=== PATIENT | female | born 1960 | race African-American/Black ===

== ENCOUNTER → 2018-05-06 | Outpatient (CLI) | payer MEDICARE, MEDICAID ==
[~2018-05-06] MED LIST: BACL-141 PO; CARI350T27 PO; CIPR-263 PO; D-ME473S8 PO; FERROUS SULFATE PO; FURO40TA5 PO; HYDR-3162 PO; IBUP-1008 PO; METO10TA3 PO; PARO30TA62 PO; PERICOLACE PO; POTASSIUM PO; TRAZ-129 PO; [UNRECOGNIZED DRUG - CODE] PO
== END | disposition home or self-care (01) ==
LOC: CT 14:45
PROVIDERS: ATTEND Internal Medicine Pulmonary Disease
DX: R41.82 Altered mental status, unspecified (principal)
CPT/HCPCS: 70450

== ENCOUNTER 2019-12-14 09:43 | Inpatient (IN) | payer MEDICARE, MEDICAID ==
[2019-12-13 20:00] VITALS: BP 105/80
[~2019-12-14] VITALS: Ht 167.6 cm; Wt 126.0 kg
[~2019-12-14 09:43] MED LIST changes: -TRAZ-129 PO; +TRAZ-251 PO
[2019-12-14] MEDS ORDERED: ASPIRIN 81MG TABLET PO ONE (11:15)
[2019-12-14] MEDS ORDERED: NITROGLYCERIN 0.4MG TABLET SL SL PRN (11:15)
[2019-12-14 12:17] LABS: PARTIAL THROMBOPLASTIN TIME 27.5 sec (23.4-31.0); PROTHROMBIN TIME 10.5 sec (9.6-11.0)
[2019-12-14 12:34] LABS: BASOPHILS % 0.8 % (0.0-2.0); EOSINOPHILS % 2.1 % (0.0-5.0); HEMATOCRIT. 38.9 % (36.0-48.0); HEMOGLOBIN. 12.6 g/dL (12.0-16.0); LYMPHOCYTES % 42.2 % (20.0-50.0); MEAN CORPUSCULAR HEMOGLOBIN 29.9 pg (28.0-32.0); MEAN CORPUSCULAR VOLUME 92.1 fL (81.0-99.0); MEAN PLATELET VOLUME 9.6 fl (7.4-10.4); MONOCYTES % 9.8 % (2.0-8.0); NEUTROPHILS % 45.1 % (40.0-76.0); PLATELET 208 x1000/uL (130-400); RED BLOOD CELL COUNT 4.22 mill/uL (4.2-5.4); RED CELL DISTRIBUTION WIDTH 16.9 % (11.6-14.6)
[2019-12-14 12:36] LABS: CHLORIDE 114 mEq/L (98-107)
[2019-12-14] MEDS ORDERED: ONDANSETRON HCL 4MG/2ML INJ IV PRN (14:30)
[2019-12-14 17:35] LABS: *AMPHETAMINES SCREEN URINE NEGATIVE (NEGATIVE)
[2019-12-14 17:36] LABS: *BARBITURATES SCREEN URINE NEGATIVE (NEGATIVE); *BENZODIAZEPINES SCREEN URINE NEGATIVE (NEGATIVE); *COCAINE SCREEN URINE NEGATIVE (NEGATIVE); METHADONE URINE SCREEN NEGATIVE (NEGATIVE); OPIATES URINE SCREEN NEGATIVE (NEGATIVE); PHENCYCLIDINE URINE SCREEN NEGATIVE (NEGATIVE)
[2019-12-14 17:37] LABS: CANNABINOID URINE SCREEN NEGATIVE (NEGATIVE)
[2019-12-14 19:13] LABS: HEPATITIS B SURFACE ANTIGEN NEGATIVE
[2019-12-14 19:42] LABS: HEPATITIS A AB IGM NEGATIVE (NEGATIVE)
[2019-12-14] MEDS ORDERED: METOPROLOL TARTRATE 25MG TABLET PO NR (19:56)
[2019-12-14] MEDS: ENOXAPARIN 120MG/0.8ML SYR SUBCUT SCH (20:28)
[2019-12-14] MEDS: ATORVASTATIN CALCIUM 10MG TABLET PO SCH (20:28)
[2019-12-14] MEDS ORDERED: HEPARIN 5000 UNITS/ML VIAL SUBCUT SCH (21:00)
[2019-12-14 22:00] VITALS: BP 105/80
[2019-12-14] MEDS ORDERED: METOPROLOL TARTRATE 25MG TABLET PO SCH (22:00)
[2019-12-14] MEDS: ACETAMINOPHEN 325MG TABLET PO PRN (23:05)
[2019-12-14] MEDS ORDERED: metropolol PO (23:12)
[2019-12-14] MEDS ORDERED: amlodipine PO (23:30)
[2019-12-14] MEDS ORDERED: symbicort INH (23:53)
[2019-12-14] MEDS ORDERED: [UNRECOGNIZED DRUG - OTHER] PO (23:53)
[2019-12-15] VITALS: BP 109/74
[2019-12-15 04:00] VITALS: BP 129/79
[2019-12-15] MEDS: METOPROLOL TARTRATE 25MG TABLET PO SCH ×3 (06:00→21:15)
[2019-12-15] MEDS: ACETAMINOPHEN 325MG TABLET PO PRN ×3 (06:44→21:24)
[2019-12-15 07:27] LABS: BASOPHILS % 0.8 % (0.0-2.0); HEMATOCRIT. 39.7 % (36.0-48.0); LYMPHOCYTES % 39.2 % (20.0-50.0); MEAN CORPUSCULAR VOLUME 91.7 fL (81.0-99.0); MEAN PLATELET VOLUME 9.5 fl (7.4-10.4); MONOCYTES % 10.4 % (2.0-8.0); NEUTROPHILS % 46.6 % (40.0-76.0); PLATELET 207 x1000/uL (130-400); RED BLOOD CELL COUNT 4.33 mill/uL (4.2-5.4); RED CELL DISTRIBUTION WIDTH 16.9 % (11.6-14.6)
[2019-12-15 07:57] LABS: CHLORIDE 112 mEq/L (98-107)
[2019-12-15 08:00] VITALS: BP 103/76
[2019-12-15 08:08] LABS: LDL CHOLESTEROL 64 mg/dL (5-100)
[2019-12-15 08:09] LABS: HDL CHOLESTEROL 48 mg/dL (40-59)
[2019-12-15] MEDS: ENOXAPARIN 120MG/0.8ML SYR SUBCUT SCH ×2 (08:49→21:15)
[2019-12-15] MEDS: METOPROLOL TARTRATE 5MG/5ML VIAL IV PRN ×2 (09:19→12:42)
[2019-12-15 12:00] VITALS: BP 114/72
[2019-12-15 16:00] VITALS: BP 120/72
[2019-12-15 20:00] VITALS: BP 110/80
[2019-12-15] MEDS: ATORVASTATIN CALCIUM 10MG TABLET PO SCH (21:14)
[2019-12-16] VITALS: BP 117/78
[2019-12-16 04:00] VITALS: BP 106/73
[2019-12-16] MEDS: METOPROLOL TARTRATE 25MG TABLET PO SCH ×3 (06:15→21:24)
[2019-12-16] MEDS: ACETAMINOPHEN 325MG TABLET PO PRN ×3 (06:47→21:24)
[2019-12-16 08:00] VITALS: BP 107/54
[2019-12-16] MEDS: ENOXAPARIN 120MG/0.8ML SYR SUBCUT SCH ×2 (09:07→21:25)
[2019-12-16] MEDS ORDERED: DIGOXIN 125MCG TABLET PO NR (10:00)
[2019-12-16 12:00] VITALS: BP 110/90
[2019-12-16] MEDS ORDERED: POTASSIUM CHLORIDE 20MEQ/PACKET PO NR (12:30)
[2019-12-16 16:00] VITALS: BP 92/61
[2019-12-16 16:01] LABS: HEMATOCRIT 38.1 % (36.0-48.0); HEMOGLOBIN 12.5 g/dL (12.0-16.0); MEAN CORPUSCULAR HEMOGLOBIN 30.1 pg (28.0-32.0); MEAN CORPUSCULAR VOLUME 91.8 fL (81.0-99.0); PLATELET 205 x1000/uL (130-400); RED BLOOD CELL COUNT 4.15 mill/uL (4.2-5.4); RED CELL DISTRIBUTION WIDTH 16.6 % (11.6-14.6)
[2019-12-16 16:26] LABS: CHLORIDE 109 mEq/L (98-107)
[2019-12-16 18:08] LABS: VITAMIN B12 SERUM 554 pg/mL (211-911)
[2019-12-16 20:00] VITALS: BP 110/75
[2019-12-16] MEDS: ATORVASTATIN CALCIUM 10MG TABLET PO SCH (21:24)
[2019-12-17] VITALS: BP 110/71
[2019-12-17 04:00] VITALS: BP 127/62
[2019-12-17] MEDS: METOPROLOL TARTRATE 25MG TABLET PO SCH ×3 (06:29→22:05)
[2019-12-17] MEDS: ACETAMINOPHEN 325MG TABLET PO PRN ×3 (06:29→21:18)
[2019-12-17 08:00] VITALS: BP 105/66
[2019-12-17] MEDS: ENOXAPARIN 120MG/0.8ML SYR SUBCUT SCH (09:14)
[2019-12-17 10:39] LABS: BASOPHILS % 0.8 % (0.0-2.0); EOSINOPHILS % 2.6 % (0.0-5.0); HEMATOCRIT. 38.2 % (36.0-48.0); HEMOGLOBIN. 12.6 g/dL (12.0-16.0); LYMPHOCYTES % 43.9 % (20.0-50.0); MEAN CORPUSCULAR HEMOGLOBIN 30.3 pg (28.0-32.0); MEAN CORPUSCULAR VOLUME 91.6 fL (81.0-99.0); MEAN PLATELET VOLUME 9.9 fl (7.4-10.4); MONOCYTES % 10.5 % (2.0-8.0); NEUTROPHILS % 42.2 % (40.0-76.0); PLATELET 201 x1000/uL (130-400); RED BLOOD CELL COUNT 4.17 mill/uL (4.2-5.4); RED CELL DISTRIBUTION WIDTH 16.7 % (11.6-14.6)
[2019-12-17 12:00] VITALS: BP 96/73
[2019-12-17] MEDS ORDERED: APIX5TAB MT (12:17)
[2019-12-17] MEDS ORDERED: METO25TA6 PO (12:17)
[2019-12-17 16:00] VITALS: BP 107/75
[2019-12-17 20:00] VITALS: BP 104/65
[2019-12-17] MEDS: ATORVASTATIN CALCIUM 10MG TABLET PO SCH (21:17)
[2019-12-17] MEDS: APIXABAN 5 MG TABLET PO SCH (21:18)
[2019-12-18] VITALS: BP 120/76
[2019-12-18 04:00] VITALS: BP 108/75
[2019-12-18] MEDS: ACETAMINOPHEN 325MG TABLET PO PRN ×2 (05:52→13:56)
[2019-12-18] MEDS: METOPROLOL TARTRATE 25MG TABLET PO SCH ×2 (05:52→13:56)
[2019-12-18 07:01] LABS: BASOPHILS % 0.4 % (0.0-2.0); EOSINOPHILS % 3.7 % (0.0-5.0); HEMATOCRIT. 37.7 % (36.0-48.0); HEMOGLOBIN. 12.5 g/dL (12.0-16.0); MEAN CORPUSCULAR HEMOGLOBIN 30.3 pg (28.0-32.0); MEAN CORPUSCULAR VOLUME 91.6 fL (81.0-99.0); MEAN PLATELET VOLUME 9.7 fl (7.4-10.4); MONOCYTES % 14.4 % (2.0-8.0); NEUTROPHILS % 35.5 % (40.0-76.0); PLATELET 186 x1000/uL (130-400); RED BLOOD CELL COUNT 4.12 mill/uL (4.2-5.4); RED CELL DISTRIBUTION WIDTH 17.1 % (11.6-14.6)
[2019-12-18 07:08] LABS: CHLORIDE 111 mEq/L (98-107)
[2019-12-18 08:00] VITALS: BP 102/70
[2019-12-18] MEDS: APIXABAN 5 MG TABLET PO SCH (08:24)
[2019-12-18 12:00] VITALS: BP 116/87
[2019-12-18] MEDS ORDERED: METO25TA6 PO (13:48)
== END 2019-12-18 14:00 | disposition home or self-care (01) | DRG 292 ==
LOC: ER 09:43 → 5WST 15:05 → EDBEDREQ 15:10 → ENRESERV 20:20
PROVIDERS: ADMIT Internal Medicine; ATTEND Internal Medicine
DX: I11.0 Hypertensive heart disease with heart failure (principal); Z68.41 Body mass index [BMI] 40.0-44.9, adult; I47.2 Ventricular tachycardia; I48.91 Unspecified atrial fibrillation; I50.9 Heart failure, unspecified; E66.01 Morbid (severe) obesity due to excess calories; E78.5 Hyperlipidemia, unspecified; I27.29 Other secondary pulmonary hypertension; I27.81 Cor pulmonale (chronic); J44.9 Chronic obstructive pulmonary disease, unspecified; Z79.01 Long term (current) use of anticoagulants; Z79.82 Long term (current) use of aspirin; Z87.891 Personal history of nicotine dependence; Z79.899 Other long term (current) drug therapy
CPT/HCPCS: 36415; 71045; 71275; 80048; 80053; 80061; 80305; 82607; 83036; 83735; 83880; 84443; 84484; 85025; 85027; 85379; 86705; 86709; 86803; 87340; 93005; 93306; 93970; 99285; J1650; J3490; Q9967

== ENCOUNTER 2024-12-17 12:33 | Inpatient (IN) | payer MEDICARE, MEDICAID ==
[~2024-12-17] VITALS: Ht 165.1 cm; Wt 141.5 kg
[~2024-12-17 12:33] MED LIST changes: +APIX5TAB MT; -BACL-141 PO; -CIPR-263 PO; -FERROUS SULFATE PO; -HYDR-3162 PO; -IBUP-1008 PO; +LEVO750T68 MT; +METF-416 MT; +METH4TAB95 MT; +METO25TA6 PO; -POTASSIUM PO; +PROT20 MT; +[UNRECOGNIZED DRUG - CODE] HHN; -[UNRECOGNIZED DRUG - CODE] PO; +[UNRECOGNIZED DRUG - OTHER] PO; +amlodipine PO; +symbicort INH
[2024-12-17 14:19] LABS: BASOPHILS % 0.9 % (0.0-2.0); DIFFERENTIAL COMMENT 0; EOSINOPHILS % 1.3 % (0.0-5.0); HEMATOCRIT. 39.3 % (36.0-48.0); HEMOGLOBIN. 12.7 g/dL (12.0-16.0); LYMPHOCYTES % 41.2 % (20.0-50.0); MEAN CORPUSCULAR HEMOGLOBIN 32.4 pg (28.0-32.0); MEAN CORPUSCULAR HGB CONC 32.3 g/dL (31.0-37.0); MEAN CORPUSCULAR VOLUME 100.3 fL (81.0-99.0); MEAN PLATELET VOLUME 9.2 fl (7.4-10.4); MONOCYTES % 11.2 % (2.0-8.0); NEUTROPHILS % 45.4 % (40.0-76.0); PLATELET 213 x1000/uL (130-400); RED BLOOD CELL COUNT 3.92 mill/uL (4.2-5.4); RED CELL DISTRIBUTION WIDTH 15.4 % (11.6-14.6); WHITE BLOOD COUNT 6.5 x1000/uL (4.5-11.0)
[2024-12-17 14:25] LABS: CHLORIDE 111 mEq/L (98-107); POTASSIUM 3.9 mEq/L (3.5-5.1); SODIUM 143 mEq/L (136-145)
[2024-12-17 14:26] LABS: CARBON DIOXIDE 26 mEq/L (21-32)
[2024-12-17 14:27] LABS: CALCIUM 9.1 mg/dL (8.7-10.4)
[2024-12-17 14:31] LABS: CREATININE 0.7 mg/dL (0.6-1.0); GLUCOSE 98 mg/dL (70-105); UREA NITROGEN BLOOD 11 mg/dL (9-23)
[2024-12-17 14:48] LABS: TROPONIN I HIGH SENSITIVITY < 4 ng/L (3.0-34)
[2024-12-17] MEDS: FUROSEMIDE 40MG/4ML VIAL IVP ONE (14:52)
[2024-12-17] MEDS ORDERED: DILTIAZEM HCL 5MG/ML 5ML VIAL IV NR (16:15)
[2024-12-17] MEDS: DILTIAZEM HCL 30MG TABLET PO SCH (16:15)
[2024-12-17] MEDS ORDERED: ONDANSETRON HCL 4MG/2ML INJ IV PRN (16:15)
[2024-12-17] MEDS ORDERED: CLONIDINE 0.1MG TABLET PO PRN (16:15)
[2024-12-17] MEDS ORDERED: IPRATROPIUM/ALBUTEROL 0.5-3(2.5)MG/3ML NEB NEB PRN (16:15)
[2024-12-17] MEDS: DILTIAZEM HCL 5MG/ML 5ML VIAL IV NR (17:04)
[2024-12-17] MEDS ORDERED: DILTIAZEM HCL 125 MG in DEXT 5% WATER 100 ML IV ONE (17:15)
[2024-12-17] MEDS ORDERED: AMIODARONE 360MG/200ML 200 ML IV SCH (18:15)
[2024-12-17] MEDS ORDERED: AMIODARONE 150MG/100ML D5W 100 ML IV ONE (18:15)
[2024-12-17] MEDS: ENOXAPARIN 150MG/ML SYR SUBCUT SCH (18:44)
[2024-12-17] MEDS: DILTIAZEM HCL 5MG/ML 5ML VIAL IV ONE (18:45)
[2024-12-17] MEDS: METHYLPREDNISOLONE SOD SUCC 40MG/ML (ACT-O-VIAL) IV SCH (18:46)
[2024-12-17] MEDS: AMIODARONE 150MG/100ML D5W 100 ML IV NR (18:53)
[2024-12-17] MEDS: AMIODARONE 360MG/200ML 200 ML IV SCH (19:13)
[2024-12-17] MEDS ORDERED: ENOXAPARIN 40MG/0.4ML SYR SUBCUT SCH (21:00)
[2024-12-17] MEDS: GUAIFENESIN 600MG ER TABLET PO SCH (21:44)
[2024-12-17 23:29] LABS: CREATINE KINASE MB FRACTION 1.1 ng/mL (0.5-3.6)
[2024-12-17 23:30] LABS: CREATINE KINASE 92 IU/L (34-145)
[2024-12-18] VITALS (43 sets, daily range): BP systolic 97–138; BP diastolic 72–121; PULSE 99–152; RESP 13–31; TEMP 36.6–36.8; O2SAT 93–99
[2024-12-18 00:02] LABS: TROPONIN I HIGH SENSITIVITY < 4 ng/L (3.0-34)
[2024-12-18 06:37] LABS: BASOPHILS % 0.3 % (0.0-2.0); DIFFERENTIAL COMMENT 0; HEMATOCRIT. 38.8 % (36.0-48.0); HEMOGLOBIN. 12.7 g/dL (12.0-16.0); MEAN CORPUSCULAR HEMOGLOBIN 33.1 pg (28.0-32.0); MEAN CORPUSCULAR HGB CONC 32.7 g/dL (31.0-37.0); MEAN CORPUSCULAR VOLUME 101.2 fL (81.0-99.0); MEAN PLATELET VOLUME 9.6 fl (7.4-10.4); MONOCYTES % 2.3 % (2.0-8.0); NEUTROPHILS % 78.4 % (40.0-76.0); PLATELET 219 x1000/uL (130-400); RED BLOOD CELL COUNT 3.83 mill/uL (4.2-5.4); RED CELL DISTRIBUTION WIDTH 14.8 % (11.6-14.6); WHITE BLOOD COUNT 5.3 x1000/uL (4.5-11.0)
[2024-12-18 06:52] LABS: CHLORIDE 107 mEq/L (98-107); POTASSIUM 3.9 mEq/L (3.5-5.1); SODIUM 140 mEq/L (136-145)
[2024-12-18 06:53] LABS: CARBON DIOXIDE 27 mEq/L (21-32)
[2024-12-18 06:58] LABS: CREATININE 0.7 mg/dL (0.6-1.0); GLUCOSE 201 mg/dL (70-105); UREA NITROGEN BLOOD 9 mg/dL (9-23)
[2024-12-18] MEDS ORDERED: DILTIAZEM HCL 5MG/ML 5ML VIAL IV PRN (07:00)
[2024-12-18] MEDS: PANTOPRAZOLE SODIUM 40 MG/VIAL IV SCH (08:39)
[2024-12-18] MEDS: METOPROLOL TARTRATE 25MG TABLET PO SCH (08:39)
[2024-12-18] MEDS: HYDROCODONE/ACETAMINOPHEN 5/325MG TABLET PO PRN (08:40)
[2024-12-18 10:31] LABS: BASOPHILS % 0.2 % (0.0-2.0); DIFFERENTIAL COMMENT 0; HEMATOCRIT. 38.8 % (36.0-48.0); HEMOGLOBIN. 12.7 g/dL (12.0-16.0); LYMPHOCYTES % 16.8 % (20.0-50.0); MEAN CORPUSCULAR HEMOGLOBIN 32.9 pg (28.0-32.0); MEAN CORPUSCULAR HGB CONC 32.8 g/dL (31.0-37.0); MEAN CORPUSCULAR VOLUME 100.2 fL (81.0-99.0); MEAN PLATELET VOLUME 9.6 fl (7.4-10.4); MONOCYTES % 1.1 % (2.0-8.0); NEUTROPHILS % 81.9 % (40.0-76.0); PLATELET 219 x1000/uL (130-400); RED BLOOD CELL COUNT 3.87 mill/uL (4.2-5.4); WHITE BLOOD COUNT 5.6 x1000/uL (4.5-11.0)
[2024-12-18 10:34] LABS: CARBON DIOXIDE 26 mEq/L (21-32); CHLORIDE 104 mEq/L (98-107); POTASSIUM 3.7 mEq/L (3.5-5.1); SODIUM 139 mEq/L (136-145)
[2024-12-18 10:35] LABS: CALCIUM 9.3 mg/dL (8.7-10.4)
[2024-12-18 10:40] LABS: CREATININE 0.7 mg/dL (0.6-1.0); GLUCOSE 223 mg/dL (70-105); UREA NITROGEN BLOOD 8 mg/dL (9-23)
[2024-12-18 10:41] LABS: CREATINE KINASE MB FRACTION 1.1 ng/mL (0.5-3.6)
[2024-12-18 10:43] LABS: CREATINE KINASE 83 IU/L (34-145)
[2024-12-18] MEDS: DILTIAZEM HCL 60MG TABLET PO SCH (11:12)
[2024-12-18 11:20] LABS: TROPONIN I HIGH SENSITIVITY < 4 ng/L (3.0-34)
[2024-12-18] MEDS ORDERED: DEXTROSE 50% WATER 50ML SYRINGE IV PRN (17:00)
[2024-12-18] MEDS: BLOOD SUGAR DIAGNOSTIC STRIP TEST SCH (17:01)
[2024-12-18] MEDS: INSULIN LISPRO 100 UNITS/ML SUBCUT SCH (18:23)
[2024-12-18] MEDS: AMIODARONE 150MG/100ML D5W 100 ML IV NR (22:59)
[2024-12-18] MEDS: ACETAMINOPHEN 325MG TABLET PO PRN (23:04)
[2024-12-19] VITALS (41 sets, daily range): BP systolic 105–163; BP diastolic 60–121; PULSE 86–141; RESP 11–31; TEMP 35.8–36.7; O2SAT 92–99
[2024-12-19 06:19] LABS: BASOPHILS % 0.2 % (0.0-2.0); DIFFERENTIAL COMMENT 0; HEMATOCRIT. 38.5 % (36.0-48.0); HEMOGLOBIN. 12.1 g/dL (12.0-16.0); LYMPHOCYTES % 9.3 % (20.0-50.0); MEAN CORPUSCULAR HEMOGLOBIN 32.3 pg (28.0-32.0); MEAN CORPUSCULAR HGB CONC 31.5 g/dL (31.0-37.0); MEAN CORPUSCULAR VOLUME 102.5 fL (81.0-99.0); MEAN PLATELET VOLUME 9.8 fl (7.4-10.4); NEUTROPHILS % 85.5 % (40.0-76.0); PLATELET 226 x1000/uL (130-400); RED BLOOD CELL COUNT 3.75 mill/uL (4.2-5.4); RED CELL DISTRIBUTION WIDTH 15.1 % (11.6-14.6); WHITE BLOOD COUNT 11.7 x1000/uL (4.5-11.0)
[2024-12-19 06:37] LABS: CARBON DIOXIDE 27 mEq/L (21-32); CHLORIDE 105 mEq/L (98-107); POTASSIUM 4.2 mEq/L (3.5-5.1); SODIUM 139 mEq/L (136-145)
[2024-12-19 06:38] LABS: CALCIUM 9.3 mg/dL (8.7-10.4)
[2024-12-19 06:42] LABS: CREATININE 0.8 mg/dL (0.6-1.0)
[2024-12-19 06:43] LABS: GLUCOSE 169 mg/dL (70-105); UREA NITROGEN BLOOD 12 mg/dL (9-23)
[2024-12-19] MEDS: IPRATROPIUM/ALBUTEROL 0.5-3(2.5)MG/3ML NEB HHN SCH (08:00)
[2024-12-19] MEDS: FUROSEMIDE 40MG/4ML VIAL IVP SCH (08:15)
[2024-12-19] MEDS ORDERED: NALOXONE HCL 0.4MG/ML VIAL IV PRN (13:15)
[2024-12-19 17:27] LABS: BG BASE EXCESS 1.8 mmol/L (-2.0-3.0); BG CARBOXYHEMOGLOBIN 0.7 % (0.5-1.5); BG DEOXYHEMOGLOBIN 3.7 % (0.0-5.0); BG FRACTION INSPIRED OXYGEN 21; BG HCO3 ACT 25.4 mmol/L (21.0-28.0); BG METHEMOGLOBIN 0.1 % (0.5-1.5); BG OXYGEN SATURATION 96.3 % (94.0-98.0); BG OXYHEMOGLOBIN 95.5 % (94.0-98.0); BG PCO2 36.6 mmHg (32.0-45.0); BG PO2 77.3 mmHg (83.0-108.0); BG SAMPLE SITE RIGHT RADIAL; BG TOTAL HEMOGLOBIN 13.6 g/dL (12.0-16.0); BG VENT MODE ROOM AIR
[2024-12-19] MEDS: DILTIAZEM HCL 90MG TABLET PO SCH (22:00)
[2024-12-20] VITALS: BP 115/84; PULSE 74; RESP 20; TEMP 36.1; O2SAT 95
[2024-12-20 04:00] VITALS: BP 108/75; PULSE 66; RESP 20; TEMP 36; O2SAT 99
[2024-12-20 06:25] LABS: CARBON DIOXIDE 27 mEq/L (21-32); CHLORIDE 106 mEq/L (98-107); POTASSIUM 3.7 mEq/L (3.5-5.1); SODIUM 141 mEq/L (136-145)
[2024-12-20 06:26] LABS: CALCIUM 8.9 mg/dL (8.7-10.4)
[2024-12-20 06:31] LABS: CREATININE 0.8 mg/dL (0.6-1.0); GLUCOSE 188 mg/dL (70-105); UREA NITROGEN BLOOD 12 mg/dL (9-23)
[2024-12-20 09:13] LABS: HEMATOCRIT. 37.7 % (36.0-48.0); HEMOGLOBIN. 12.2 g/dL (12.0-16.0); MEAN CORPUSCULAR HEMOGLOBIN 32.5 pg (28.0-32.0); MEAN CORPUSCULAR HGB CONC 32.3 g/dL (31.0-37.0); MEAN CORPUSCULAR VOLUME 100.8 fL (81.0-99.0); MEAN PLATELET VOLUME 10.2 fl (7.4-10.4); PLATELET 208 x1000/uL (130-400); RED BLOOD CELL COUNT 3.74 mill/uL (4.2-5.4); RED CELL DISTRIBUTION WIDTH 14.8 % (11.6-14.6)
[2024-12-20 09:17] LABS: DIFFERENTIAL COMMENT 1
[2024-12-20 09:37] VITALS: PULSE 85; RESP 20; O2SAT 95
[2024-12-20] MEDS: DILTIAZEM HCL 90MG TABLET PO SCH (10:00)
[2024-12-20 14:35] VITALS: PULSE 124
[2024-12-20 20:00] VITALS: BP 135/76; PULSE 66; RESP 20; TEMP 36.1; O2SAT 95
[2024-12-20 20:22] LABS: PLATELET ESTIMATE NORMAL
[2024-12-20 20:24] VITALS: PULSE 156
[2024-12-21] VITALS (7 sets, daily range): BP systolic 93–121; BP diastolic 40–88; PULSE 70–120; RESP 17–21; TEMP 35.9–36.4; O2SAT 95–99
[2024-12-21] MEDS: DIGOXIN 500MCG/2ML AMP IV NR (12:30)
[2024-12-21] MEDS ORDERED: DIGOXIN 500MCG/2ML AMP IV PRN (14:00)
[2024-12-21] MEDS: DIGOXIN 125MCG TABLET PO SCH (18:33)
[2024-12-21] MEDS: DILTIAZEM HCL 5MG/ML 5ML VIAL IV PRN (18:37)
[2024-12-22] VITALS (8 sets, daily range): BP systolic 115–127; BP diastolic 53–87; PULSE 78–141; RESP 15–20; TEMP 36.1–36.7; O2SAT 95–100
[2024-12-22] MEDS: DILTIAZEM HCL 90MG TABLET PO SCH (12:25)
[2024-12-22] MEDS ORDERED: DILT360C27 MT (13:24)
[2024-12-22] MEDS ORDERED: DIGO-34 PO (13:24)
[2024-12-22] MEDS ORDERED: METO25TA6 PO (13:24)
[2024-12-22] MEDS ORDERED: P20 MT (13:25)
[2024-12-23] MEDS ORDERED: FAMOTIDINE 20MG TABLET PO SCH (09:00)
== END 2024-12-22 16:08 | disposition home or self-care (01) | DRG 291 ==
LOC: ER 12:33 → EDBEDREQ 13:57 → CVICU 15:40 → EDBEDREQ 15:59 → EDBEDREQTM 17:17 → EDBEDREQSVC 17:17 → 8WST 12-19 14:48
PROVIDERS: ADMIT Internal Medicine; ATTEND Internal Medicine
DX: I11.0 Hypertensive heart disease with heart failure (principal); I50.21 Acute systolic (congestive) heart failure; J96.01 Acute respiratory failure with hypoxia; I48.20 Chronic atrial fibrillation, unspecified; J44.1 Chronic obstructive pulmonary disease with (acute) exacerbation; Z68.43 Body mass index [BMI] 50.0-59.9, adult; E78.5 Hyperlipidemia, unspecified; I48.91 Unspecified atrial fibrillation; E11.40 Type 2 diabetes mellitus with diabetic neuropathy, unspecified; E66.9 Obesity, unspecified
CPT/HCPCS: 36415; 36600; 71045; 80048; 82375; 82550; 82553; 82805; 82962; 83880; 84484; 85025; 93005; 93306; 93970; 94070; 94640; 94664; 99291; A4606; J0282; J1160; J1650; J1815; J1940; J2470; J2920; J3490; J7060

== ENCOUNTER 2025-04-01 07:08 | Emergency (ER) | payer MEDICARE, MEDICAID ==
[~2025-04-01] VITALS: Ht 165.1 cm; Wt 128.5 kg
[~2025-04-01 07:08] MED LIST changes: +CARI-517 PO; -CARI350T27 PO; +DIGO-34 PO; +DILT360C27 MT; -LEVO750T68 MT; -METH4TAB95 MT; +P20 MT
[2025-04-01 07:11] VITALS: O2SAT 99
[2025-04-01 07:49] LABS: BASOPHILS % 0.8 % (0.0-2.0); DIFFERENTIAL COMMENT 0; EOSINOPHILS % 1.8 % (0.0-5.0); HEMATOCRIT. 47.8 % (36.0-48.0); HEMOGLOBIN. 15.1 g/dL (12.0-16.0); LYMPHOCYTES % 44.6 % (20.0-50.0); MEAN CORPUSCULAR HEMOGLOBIN 28.6 pg (28.0-32.0); MEAN CORPUSCULAR HGB CONC 31.6 g/dL (31.0-37.0); MEAN CORPUSCULAR VOLUME 90.6 fL (81.0-99.0); MEAN PLATELET VOLUME 8.8 fl (7.4-10.4); MONOCYTES % 13.8 % (2.0-8.0); PLATELET 227 x1000/uL (130-400); RED BLOOD CELL COUNT 5.27 mill/uL (4.2-5.4); RED CELL DISTRIBUTION WIDTH 16.3 % (11.6-14.6); WHITE BLOOD COUNT 5.4 x1000/uL (4.5-11.0)
[2025-04-01 07:58] LABS: CARBON DIOXIDE 25 mEq/L (21-32); CHLORIDE 106 mEq/L (98-107); POTASSIUM 4.2 mEq/L (3.5-5.1); SODIUM 142 mEq/L (136-145)
[2025-04-01 07:59] LABS: CALCIUM 8.9 mg/dL (8.7-10.4)
[2025-04-01 08:04] LABS: CREATININE 0.7 mg/dL (0.6-1.0); GLUCOSE 131 mg/dL (70-105); TROPONIN I HIGH SENSITIVITY 5 ng/L (3.0-34); UREA NITROGEN BLOOD 5 mg/dL (9-23)
[2025-04-01 08:05] VITALS: PULSE 87; RESP 18
[2025-04-01] MEDS: ALBUTEROL (0.083%) 2.5MG/3ML NEB HHN STA (08:05)
[2025-04-01] MEDS: IPRATROPIUM BROMIDE (0.02%) 0.5MG/2.5ML NEB HHN STA (08:06)
[2025-04-01 08:10] LABS: CLARITY URINE CLEAR (CLEAR); COLOR URINE YELLOW (YELLOW); GLUCOSE URINE 3+ (NEGATIVE); KETONES URINE NEGATIVE (NEGATIVE); LEUKOCYTE ESTERASE URINE TRACE (NEGATIVE); NITRITE URINE NEGATIVE (NEGATIVE); OCCULT BLOOD URINE 2+ (NEGATIVE); PH URINE 5.5 (4.5-8.0); PROTEIN URINE NEGATIVE (NEGATIVE); SPECIFIC GRAVITY URINE 1.032 (1.005-1.030)
[2025-04-01 08:29] LABS: SQUAMOUS EPITHELIAL CELL URINE 1+ /lpf (RARE/1+)
[2025-04-01 08:30] LABS: MUCUS URINE TRACE /lpf (< = 2+)
[2025-04-01 08:31] LABS: BACTERIA URINE TRACE
[2025-04-01 08:33] LABS: RBC URINE 15-25 /hpf (0-2)
[2025-04-01 08:34] LABS: WBC URINE 0-2 /hpf (0-2)
[2025-04-01] MEDS ORDERED: TOPUD PO (09:19)
[2025-04-01 09:47] VITALS: BP 135/80; PULSE 82; RESP 18; TEMP 36.6; O2SAT 99
== END 2025-04-01 09:51 | disposition home or self-care (01) ==
LOC: ER 07:08
DX: R05.9 Cough, unspecified (principal); E11.9 Type 2 diabetes mellitus without complications; I11.0 Hypertensive heart disease with heart failure; I50.9 Heart failure, unspecified; J44.89 Other specified chronic obstructive pulmonary disease; Z79.899 Other long term (current) drug therapy
CPT/HCPCS: 36415; 71045; 80048; 81003; 84484; 85025; 93005; 94070; 94640; 99285

== ENCOUNTER 2025-07-14 10:06 | Inpatient (IN) | payer MEDICARE, MEDICAID ==
[~2025-07-14] VITALS: Ht 172.7 cm; Wt 128.4 kg
[2025-07-14] VITALS (60 sets, daily range): BP systolic 57–185; BP diastolic 39–135; PULSE 50–101; RESP 0–25; TEMP 36.4–37.3; O2SAT 0–100
[~2025-07-14 10:06] MED LIST changes: +TOPUD PO
[2025-07-14] MEDS ORDERED: NOREPINEPHRINE 8MG/250ML PMX 250 ML IV ONE (10:29)
[2025-07-14] MEDS ORDERED: VANCOMYCIN 1G PREMIX 200 ML IV ONE (10:30)
[2025-07-14] MEDS ORDERED: ACETAMINOPHEN 650MG/20.3ML UDC NG PRN (10:30)
[2025-07-14] MEDS ORDERED: ACETAMINOPHEN 650MG SUPP PR PRN (10:30)
[2025-07-14] MEDS ORDERED: AMIODARONE 360MG/200ML 200 ML IV SCH ×2 (10:30→11:15)
[2025-07-14] MEDS ORDERED: PROPOFOL 10MG/ML 100ML 100 ML IV PRN (10:30)
[2025-07-14] MEDS: NOREPINEPHRINE 8MG/250ML PMX 250 ML IV ONE (10:43)
[2025-07-14] MEDS: SODIUM CHLORIDE 0.9% (SEPSIS BOLUS) IV ONE (10:44)
[2025-07-14 10:46] LABS: BASOPHILS % 0.5 % (0.0-2.0); EOSINOPHILS % 0.8 % (0.0-5.0); HEMATOCRIT. 44.6 % (36.0-48.0); HEMOGLOBIN. 13.6 g/dL (12.0-16.0); LYMPHOCYTES % 59.6 % (20.0-50.0); MEAN PLATELET VOLUME 9.7 fl (7.4-10.4); MONOCYTES % 8.6 % (2.0-8.0); NEUTROPHILS % 30.5 % (40.0-76.0); PLATELET 130 x1000/uL (130-400); RED BLOOD CELL COUNT 4.48 mill/uL (4.2-5.4); RED CELL DISTRIBUTION WIDTH 18.7 % (11.6-14.6)
[2025-07-14] MEDS: CALCIUM CHLORIDE 1GM/10ML SYR IV ONE (10:47)
[2025-07-14] MEDS: INSULIN REGULAR (HUMULIN R) 1000UNITS/10ML VIAL IV ONE (10:53)
[2025-07-14] MEDS ORDERED: EPINEPHRINE 0.1MG/ML (1:10,000) 10ML SYR ONE (10:57)
[2025-07-14] MEDS ORDERED: HEPARIN 1000 UNITS/ML 10ML ONE (10:57)
[2025-07-14] MEDS ORDERED: IODIXANOL 320MG/ML 100 ML BOTTLE IV ONE (10:58)
[2025-07-14] MEDS ORDERED: LIDOCAINE HCL 1% 20ML VIAL ONE (10:58)
[2025-07-14] MEDS ORDERED: ATROPINE SULFATE 1MG/10ML SYR ONE (10:58)
[2025-07-14 10:59] LABS: INR 1.1
[2025-07-14] MEDS ORDERED: AMIODARONE HCL 150 MG in DEXT 5% WATER 100 ML IV ONE (11:00)
[2025-07-14 11:04] LABS: CREATININE 1.1 mg/dL (0.6-1.0); UREA NITROGEN BLOOD 5 mg/dL (9-23)
[2025-07-14] MEDS: PIPERACILLIN/TAZO 3.375G/50ML 50 ML IV ONE (11:05)
[2025-07-14 11:06] LABS: ASPARTATE AMINOTRANSFERASE 113 IU/L (<34); BILIRUBIN DIRECT 0.2 mg/dL (<=3.0); BILIRUBIN TOTAL 0.9 mg/dL (0.1-1.0); PHOSPHORUS 7.8 mg/dL (2.5-4.9)
[2025-07-14] MEDS ORDERED: AMIODARONE 150MG/100ML PREMIX IV NR (11:15)
[2025-07-14] MEDS ORDERED: ACETAMINOPHEN 325MG TABLET PO PRN (11:15)
[2025-07-14] MEDS ORDERED: KCL 10MEQ/50ML PREMIX 50 ML IV SCH (11:15)
[2025-07-14] MEDS ORDERED: ONDANSETRON HCL 4MG/2ML INJ IV PRN (11:15)
[2025-07-14] MEDS ORDERED: HYDROCODONE/ACETAMINOPHEN 5/325MG TABLET PO PRN (11:15)
[2025-07-14] MEDS ORDERED: MORPHINE SULFATE 2 MG/ML INJ (NOT FOR IM USE) IV PRN (11:15)
[2025-07-14 11:22] LABS: BG BASE EXCESS -16.4 mmol/L (-2.0-3.0); BG CARBOXYHEMOGLOBIN 1.2 % (0.5-1.5); BG DEOXYHEMOGLOBIN 9.9 % (0.0-5.0); BG FRACTION INSPIRED OXYGEN 100; BG HCO3 ACT 15.3 mmol/L (21.0-28.0); BG METHEMOGLOBIN 0.3 % (0.5-1.5); BG OXYGEN SATURATION 89.9 % (94.0-98.0); BG OXYHEMOGLOBIN 88.6 % (94.0-98.0); BG PCO2 61.0 mmHg (32.0-45.0); BG PEEP (cmH2O) 10.0 cmH2O; BG PH 7.018 (7.350-7.450); BG PO2 81.7 mmHg (83.0-108.0); BG SAMPLE SITE LEFT BRACHIAL; BG TIDAL VOLUME(mL) 450.0 mL; BG TOTAL HEMOGLOBIN 16.1 g/dL (12.0-16.0); BG TOTAL RESPIRATORY RATE 18 b/min; BG VENT MODE VENT - AC; BG VENT RATE 18.0 set
[2025-07-14 11:26] LABS: PROTEIN TOTAL 4.9 g/dL (6.0-8.3)
[2025-07-14 11:27] LABS: TROPONIN I HIGH SENSITIVITY 320 ng/L (3.0-34)
[2025-07-14] MEDS: PIPERACILLIN/TAZO 3.375G/50ML 50 ML IV SCH (15:00)
[2025-07-14] MEDS: KCL 20MEQ/100ML PREMIX 100 ML IV SCH (15:00)
[2025-07-14] MEDS: SODIUM CHLORIDE 0.9% 1,000 ML IV SCH (15:01)
[2025-07-14 15:25] LABS: BG BASE EXCESS -10.1 mmol/L (-2.0-3.0); BG CARBOXYHEMOGLOBIN 0.3 % (0.5-1.5); BG DEOXYHEMOGLOBIN 0.2 % (0.0-5.0); BG FRACTION INSPIRED OXYGEN 100; BG HCO3 ACT 17.1 mmol/L (21.0-28.0); BG METHEMOGLOBIN 0.5 % (0.5-1.5); BG OXYGEN SATURATION 99.8 % (94.0-98.0); BG OXYHEMOGLOBIN 99.0 % (94.0-98.0); BG PCO2 41.8 mmHg (32.0-45.0); BG PEEP (cmH2O) 10.0 cmH2O; BG PH 7.229 (7.350-7.450); BG PO2 355.1 mmHg (83.0-108.0); BG SAMPLE SITE LEFT RADIAL; BG TIDAL VOLUME(mL) 450.0 mL; BG TOTAL HEMOGLOBIN 17.3 g/dL (12.0-16.0); BG VENT MODE VENT - AC; BG VENT RATE 24.0 set
[2025-07-14 15:26] LABS: TRIGLYCERIDE 341.0 mg/dL (0-150)
[2025-07-14 15:27] LABS: LDL CHOLESTEROL 118.0 mg/dL (5-100)
[2025-07-14 15:57] LABS: TROPONIN I HIGH SENSITIVITY 4979.0 ng/L (3.0-34)
[2025-07-14 16:10] LABS: GLUCOSE URINE 3+ (NEGATIVE); KETONES URINE NEGATIVE (NEGATIVE); LEUKOCYTE ESTERASE URINE NEGATIVE (NEGATIVE); NITRITE URINE NEGATIVE (NEGATIVE); OCCULT BLOOD URINE 3+ (NEGATIVE); PH URINE 6.5 (4.5-8.0); PROTEIN URINE 3+ (NEGATIVE); SPECIFIC GRAVITY URINE 1.012 (1.005-1.030); UROBILINOGEN URINE 0.2 E.U./dL (0.2-1.0)
[2025-07-14] MEDS: NOREPINEPHRINE 8MG/250ML PMX 250 ML IV PRN (16:11)
[2025-07-14 16:27] LABS: *AMPHETAMINES SCREEN URINE NEGATIVE (NEGATIVE)
[2025-07-14 16:28] LABS: *BARBITURATES SCREEN URINE NEGATIVE (NEGATIVE); *BENZODIAZEPINES SCREEN URINE NEGATIVE (NEGATIVE); *COCAINE SCREEN URINE PRESUMPTIVE POSITIVE (NEGATIVE); CANNABINOID URINE SCREEN NEGATIVE (NEGATIVE); CLARITY URINE SL HAZY (CLEAR); COLOR URINE STRAW (YELLOW); ECSTASY MDMA SCREEN URINE NEGATIVE (NEGATIVE); METHADONE URINE SCREEN NEGATIVE (NEGATIVE); OPIATES URINE SCREEN NEGATIVE (NEGATIVE); PHENCYCLIDINE URINE SCREEN NEGATIVE (NEGATIVE)
[2025-07-14 16:29] LABS: BACTERIA URINE TRACE; MUCUS URINE 1+ /lpf (< = 2+); SQUAMOUS EPITHELIAL CELL URINE 1+ /lpf (RARE/1+)
[2025-07-14] MEDS: IPRATROPIUM/ALBUTEROL 0.5-3(2.5)MG/3ML NEB HHN SCH (16:54)
[2025-07-14 19:38] LABS: CREATININE 1.3 mg/dL (0.6-1.0); UREA NITROGEN BLOOD 9.0 mg/dL (9-23)
[2025-07-14 19:40] LABS: INFLUENZA TYPE A Presumptive Negative (Pres. Neg.); INFLUENZA TYPE B Presumptive Negative (Pres. Neg.)
[2025-07-14 19:43] LABS: RESPIRATORY SYNCYTIAL VIRUS Not Detected (Not Detectd)
[2025-07-15] VITALS (106 sets, daily range): BP systolic 65–197; BP diastolic 35–124; PULSE 71–103; RESP 22–28; TEMP 37–37.4; O2SAT 97–100
[2025-07-15 01:03] LABS: TROPONIN I HIGH SENSITIVITY 6323 ng/L (3.0-34)
[2025-07-15 06:32] LABS: BASOPHILS % 0.3 % (0.0-2.0); EOSINOPHILS % 0.1 % (0.0-5.0); HEMATOCRIT. 49.6 % (36.0-48.0); HEMOGLOBIN. 15.9 g/dL (12.0-16.0); LYMPHOCYTES % 21.7 % (20.0-50.0); MONOCYTES % 7.7 % (2.0-8.0); NEUTROPHILS % 70.2 % (40.0-76.0); RED BLOOD CELL COUNT 5.26 mill/uL (4.2-5.4); RED CELL DISTRIBUTION WIDTH 18.8 % (11.6-14.6)
[2025-07-15 06:36] LABS: CREATININE 1.3 mg/dL (0.6-1.0); UREA NITROGEN BLOOD 10 mg/dL (9-23)
[2025-07-15] MEDS: PANTOPRAZOLE SODIUM 40 MG/VIAL IV SCH (09:07)
[2025-07-15 09:32] LABS: BG BASE EXCESS -1.9 mmol/L (-2.0-3.0); BG CARBOXYHEMOGLOBIN 1.3 % (0.5-1.5); BG DEOXYHEMOGLOBIN 0.8 % (0.0-5.0); BG FRACTION INSPIRED OXYGEN 60; BG HCO3 ACT 22.4 mmol/L (21.0-28.0); BG METHEMOGLOBIN 0.3 % (0.5-1.5); BG OXYGEN SATURATION 99.2 % (94.0-98.0); BG OXYHEMOGLOBIN 97.6 % (94.0-98.0); BG PCO2 37.0 mmHg (32.0-45.0); BG PEEP (cmH2O) 10.0 cmH2O; BG PH 7.399 (7.350-7.450); BG PO2 128.5 mmHg (83.0-108.0); BG SAMPLE SITE RIGHT RADIAL; BG TIDAL VOLUME(mL) 450.0 mL; BG TOTAL HEMOGLOBIN 16.5 g/dL (12.0-16.0); BG VENT MODE VENT - AC; BG VENT RATE 24.0 set
[2025-07-15 11:31] LABS: PLATELET 171 x1000/uL (130-400)
[2025-07-15 13:25] LABS: CREATININE 1.2 mg/dL (0.6-1.0); UREA NITROGEN BLOOD 10.0 mg/dL (9-23)
[2025-07-15] MEDS: KCL 20MEQ/100ML PREMIX 100 ML IV SCH (18:37)
[2025-07-16] VITALS (105 sets, daily range): BP systolic 51–199; BP diastolic 18–146; PULSE 87–121; RESP 21–29; TEMP 36.6–37.3; O2SAT 92–100
[2025-07-16 05:06] LABS: BASOPHILS % 0.3 % (0.0-2.0); EOSINOPHILS % 1.3 % (0.0-5.0); HEMATOCRIT. 44.8 % (36.0-48.0); HEMOGLOBIN. 14.4 g/dL (12.0-16.0); LYMPHOCYTES % 18.9 % (20.0-50.0); MEAN PLATELET VOLUME 9.6 fl (7.4-10.4); MONOCYTES % 8.3 % (2.0-8.0); NEUTROPHILS % 71.2 % (40.0-76.0); PLATELET 136 x1000/uL (130-400); RED BLOOD CELL COUNT 4.79 mill/uL (4.2-5.4); RED CELL DISTRIBUTION WIDTH 19.4 % (11.6-14.6)
[2025-07-16 05:25] LABS: CREATININE 1.3 mg/dL (0.6-1.0); UREA NITROGEN BLOOD 13 mg/dL (9-23)
[2025-07-16 10:30] LABS: BG BASE EXCESS -4.3 mmol/L (-2.0-3.0); BG CARBOXYHEMOGLOBIN 0.5 % (0.5-1.5); BG DEOXYHEMOGLOBIN 1.5 % (0.0-5.0); BG FRACTION INSPIRED OXYGEN 60; BG HCO3 ACT 21.5 mmol/L (21.0-28.0); BG METHEMOGLOBIN 0.3 % (0.5-1.5); BG OXYGEN SATURATION 98.5 % (94.0-98.0); BG OXYHEMOGLOBIN 97.7 % (94.0-98.0); BG PCO2 42.1 mmHg (32.0-45.0); BG PEEP (cmH2O) 10.0 cmH2O; BG PH 7.326 (7.350-7.450); BG PO2 118.6 mmHg (83.0-108.0); BG SAMPLE SITE RIGHT RADIAL; BG TIDAL VOLUME(mL) 450.0 mL; BG TOTAL HEMOGLOBIN 14.9 g/dL (12.0-16.0); BG VENT MODE VENT - AC; BG VENT RATE 24.0 set
[2025-07-16] MEDS ORDERED: NALOXONE HCL 0.4MG/ML VIAL IV PRN (15:45)
[2025-07-16 16:47] LABS: BG BASE EXCESS -3.6 mmol/L (-2.0-3.0); BG CARBOXYHEMOGLOBIN 0.8 % (0.5-1.5); BG DEOXYHEMOGLOBIN 1.2 % (0.0-5.0); BG FRACTION INSPIRED OXYGEN 60; BG HCO3 ACT 23.2 mmol/L (21.0-28.0); BG METHEMOGLOBIN 0.3 % (0.5-1.5); BG OXYGEN SATURATION 98.8 % (94.0-98.0); BG OXYHEMOGLOBIN 97.7 % (94.0-98.0); BG PCO2 48.0 mmHg (32.0-45.0); BG PEEP (cmH2O) 10.0 cmH2O; BG PH 7.302 (7.350-7.450); BG PO2 143.3 mmHg (83.0-108.0); BG SAMPLE SITE RIGHT RADIAL; BG TIDAL VOLUME(mL) 450.0 mL; BG TOTAL HEMOGLOBIN 16.7 g/dL (12.0-16.0); BG VENT MODE VENT - AC; BG VENT RATE 24.0 set
[2025-07-16] MEDS: KCL 20MEQ/100ML PREMIX 100 ML IV SCH (17:00)
[2025-07-16 17:58] LABS: BASOPHILS % 0.3 % (0.0-2.0); EOSINOPHILS % 1.8 % (0.0-5.0); HEMATOCRIT. 44.4 % (36.0-48.0); HEMOGLOBIN. 14.1 g/dL (12.0-16.0); LYMPHOCYTES % 16.0 % (20.0-50.0); MEAN PLATELET VOLUME 10.1 fl (7.4-10.4); MONOCYTES % 9.0 % (2.0-8.0); NEUTROPHILS % 72.9 % (40.0-76.0); PLATELET 126 x1000/uL (130-400); RED BLOOD CELL COUNT 4.66 mill/uL (4.2-5.4); RED CELL DISTRIBUTION WIDTH 19.6 % (11.6-14.6)
[2025-07-16 18:09] LABS: INR 1.2
[2025-07-16 18:15] LABS: CREATININE 1.2 mg/dL (0.6-1.0); UREA NITROGEN BLOOD 12 mg/dL (9-23)
[2025-07-16 18:16] LABS: CREATINE KINASE MB FRACTION 2.2 ng/mL (0.5-3.6)
[2025-07-16 18:17] LABS: ASPARTATE AMINOTRANSFERASE 40 IU/L (<34); BILIRUBIN TOTAL 1.9 mg/dL (0.1-1.0); PROTEIN TOTAL 5.8 g/dL (6.0-8.3)
[2025-07-16] MEDS: DEXT 5%/0.45% NACL 1000ML 1,000 ML IV SCH (18:24)
[2025-07-16 19:02] LABS: CLARITY URINE CLOUDY (CLEAR); COLOR URINE YELLOW (YELLOW); GLUCOSE URINE 3+ (NEGATIVE); KETONES URINE NEGATIVE (NEGATIVE); LEUKOCYTE ESTERASE URINE TRACE (NEGATIVE); NITRITE URINE NEGATIVE (NEGATIVE); OCCULT BLOOD URINE 1+ (NEGATIVE); PH URINE 5.5 (4.5-8.0); PROTEIN URINE NEGATIVE (NEGATIVE); SPECIFIC GRAVITY URINE 1.009 (1.005-1.030); UROBILINOGEN URINE 0.2 E.U./dL (0.2-1.0)
[2025-07-16] MEDS ORDERED: ALBUMIN HUMAN 25GM/100ML (25%) IV NR (19:45)
[2025-07-16] MEDS ORDERED: FUROSEMIDE 100MG/10ML VIAL IVP NR (19:45)
[2025-07-16] MEDS ORDERED: ALBUMIN HUMAN 25GM/500ML (5%) IV NR (19:45)
[2025-07-16 19:59] LABS: WBC URINE 0-2 /hpf (0-2)
[2025-07-16 20:00] LABS: BACTERIA URINE 1+; RBC URINE 0-2 /hpf (0-2); SQUAMOUS EPITHELIAL CELL URINE 1+ /lpf (RARE/1+); YEAST URINE 4+
[2025-07-16] MEDS: HEPARIN 5000 UNITS/ML VIAL IV NR (20:05)
[2025-07-16] MEDS: MORPHINE SULFATE 250 MG in DEXT 5% WATER 225 ML IV PRN (20:40)
[2025-07-16] MEDS ORDERED: IOHEXOL-300 100 ML BOTTLE ONE (23:23)
== END 2025-07-17 00:05 | DRG 871 ==
LOC: ER 10:06 → MICUSO 10:51 → EDBEDREQTM 10:52 → EDBEDREQ 10:52 → ENRESERV 12:35 → CANRESERV 12:35
PROVIDERS: ADMIT Internal Medicine; ATTEND Internal Medicine
PROC: 5A1945Z Respiratory Ventilation, 24-96 Consecutive Hours (ICD-10-PCS; principal; 2025-07-14)
PROC: 0BH17EZ Insertion of Endotracheal Airway into Trachea, Via Natural or Artificial Opening (ICD-10-PCS; 2025-07-14)
DX: A41.9 Sepsis, unspecified organism (principal); G93.6 Cerebral edema; J18.9 Pneumonia, unspecified organism; J96.01 Acute respiratory failure with hypoxia; R65.21 Severe sepsis with septic shock; I50.22 Chronic systolic (congestive) heart failure; G93.40 Encephalopathy, unspecified; Z68.41 Body mass index [BMI] 40.0-44.9, adult; J44.0 Chronic obstructive pulmonary disease with (acute) lower respiratory infection; I47.20 Ventricular tachycardia, unspecified; E87.29 Other acidosis; E87.0 Hyperosmolality and hypernatremia; Z20.822 Contact with and (suspected) exposure to COVID-19; I46.2 Cardiac arrest due to underlying cardiac condition; R57.0 Cardiogenic shock; Z66 Do not resuscitate; E66.01 Morbid (severe) obesity due to excess calories; I11.0 Hypertensive heart disease with heart failure; I49.01 Ventricular fibrillation; I48.91 Unspecified atrial fibrillation; S00.03XA Contusion of scalp, initial encounter; E11.65 Type 2 diabetes mellitus with hyperglycemia; M48.00 Spinal stenosis, site unspecified; E78.5 Hyperlipidemia, unspecified; E87.6 Hypokalemia; E83.52 Hypercalcemia; E83.39 Other disorders of phosphorus metabolism; E78.1 Pure hyperglyceridemia; I25.2 Old myocardial infarction; Z79.899 Other long term (current) drug therapy; W07.XXXA Fall from chair, initial encounter; Y93.89 Activity, other specified; Y92.89 Other specified places as the place of occurrence of the external cause; Y99.8 Other external cause status
CPT/HCPCS: 31720; 36415; 36600; 71045; 71260; 74177; 80048; 80053; 80061; 80076; 80305; 81003; 82150; 82375; 82550; 82553; 82805; 82962; 83036; 83605; 83735; 83880; 84100; 84145; 84443; 84450; 84460; 84484; 85025; 86850; 86900; 86920; 87070; 87420; 87426; 87804; 93005; 93306; 93970; 94002; 94003; 94070; 94640; 94664; 99291; A4606; A6261; J0282; J0461; J1644; J1815; J1938; J2003; J2470; J2543; J3480; J3490; J7030; P9041; P9047; Q9967